=== PATIENT | male | born 1960 | race Caucasian/White ===

== ENCOUNTER 2017-08-25 12:25 | Emergency (ER) | payer OTHER ==
[~2017-08-25] VITALS: Ht 165.1 cm; Wt 113.4 kg
[~2017-08-25 12:25] MED LIST: ASPI81CH45 PO; HYDR-1421; METO-169 PO; SIMV-13 PO
[2017-08-25 13:05] LABS: Basophils # (auto) 0 uL; Basophils % (auto) 0.7 % (0.0-2.0); Eosinophils # (auto) 0.1 uL; Eosinophils % (auto) 1.2 % (0.0-7.0); Hematocrit 41.1 % (41.0-53.0); Hemoglobin 13.9 g/dL (13.5-17.5); Lymphocytes % (auto) 31.6 % (10.0-50.0); Mean Corpuscular Hemoglobin 29.4 pg (28.0-32.0); Mean Corpuscular Hgb Conc. 33.8 g/dL (32.0-36.0); Mean Corpuscular Volume 87.1 fL (80.0-100.0); Mean Platelet Volume 8.1 fL (6.9-10.8); Monocytes # (auto) 0.5 uL; Monocytes % (auto) 8.4 % (0.0-12.0); Neutrophils # (auto) 3.7 uL; Neutrophils % (auto) 58.1 % (37.0-80.0); Nucleated Red Blood Cells % 0.1 %; Platelet Count (auto) 237 10^3/uL (140-450); Red Cell Distribution Width 13.2 % (11.8-14.3); White Blood Cell 6.4 10^3/uL (4.4-10.8)
[2017-08-25 13:33] LABS: Anion Gap 8 (5-15); Blood Urea Nitrogen 16 mg/dL (7-18); Calcium 9.1 mg/dL (8.5-10.1); Carbon Dioxide 26 mmol/L (21-32); Chloride 104 mmol/L (98-107); Glucose 101 mg/dL (74-106); Magnesium 2.1 mg/dL (1.6-2.6); Potassium 3.8 mmol/L (3.5-5.1); Sodium 138 mmol/L (136-145)
[2017-08-25 13:36] LABS: Albumin 3.5 g/dL (3.4-5.0); BUN/Creatinine Ratio 16.8; GFR African American 106 mL/min; GFR Non-African American 87 mL/min
[2017-08-25 13:43] LABS: Alkaline Phosphatase 95 U/L (45-117); Aspartate Aminotransferase 16 U/L (15-37); Bilirubin, Total 0.3 mg/dL (0.2-1.0); Total Protein 7.8 g/dL (6.4-8.2)
[2017-08-25 15:06] VITALS: BP 134/86
== END 2017-08-25 15:17 | disposition home or self-care (01) ==
LOC: ER 12:25
DX: R07.89 Other chest pain (principal); I10 Essential (primary) hypertension; I25.10 Atherosclerotic heart disease of native coronary artery without angina pectoris; E78.5 Hyperlipidemia, unspecified; I25.2 Old myocardial infarction; Z77.22 Contact with and (suspected) exposure to environmental tobacco smoke (acute) (chronic); Z87.11 Personal history of peptic ulcer disease; Z79.82 Long term (current) use of aspirin
CPT/HCPCS: 36415; 71020; 80053; 83735; 84484; 85025; 93005

== ENCOUNTER 2021-03-06 07:29 | Day surgery (SDC) | payer MEDICAID ==
[~2021-03-06] VITALS: Ht 165.1 cm; Wt 148.8 kg
[~2021-03-06 07:29] MED LIST changes: -ASPI81CH45 PO; -HYDR-1421; +IBUP800T27 PO; -METO-169 PO; -SIMV-13 PO
[2021-03-06] MEDS ORDERED: LIDOCAINE 2%HCL (LOCAL ANESTH.) INJ 20ML MDV ONE (08:59)
[2021-03-06] MEDS ORDERED: IOHEXOL 350 MG/ML 100ML IJ ONE (08:59)
[2021-03-06] MEDS ORDERED: ANGIOMAX 250 MG VIAL IV ONE (09:06)
[2021-03-06] MEDS ORDERED: VERAPAMIL 2.5MG/ML INJ 2ML VIAL IV ONE (09:06)
[2021-03-06] MEDS ORDERED: HEPARIN SODIUM (PORCINE) 5000 UNITS/ML 1ML VIAL ONE (09:06)
[2021-03-06] MEDS ORDERED: MIDAZOLAM HCL 1MG/1ML-2 ML VIAL ONE (09:07)
[2021-03-06] MEDS ORDERED: fentaNYL CITRATE 100 MCG/2 ML VL ONE (09:07)
[2021-03-06] MEDS ORDERED: SODIUM CHL 0.9% 50 ML ONE (09:07)
[2021-03-06] MEDS ORDERED: NITROGLYCERIN 5MG/ML 10ML VIAL IV ONE (09:31)
[2021-03-06] MEDS ORDERED: hydrALAZINE HCL 20 MG/ML VL ONE (10:01)
[2021-03-06] MEDS ORDERED: ACETAMINOPHEN 500 MG TAB PO PRN (10:45)
[2021-03-06] MEDS ORDERED: HYDROcodone-ACET 5/325MG TAB PO PRN (10:45)
[2021-03-06] MEDS ORDERED: SODIUM CHLORIDE 0.9% 1,000 ML IV SCH (10:45)
== END 2021-03-06 12:35 | disposition home or self-care (01) ==
LOC: CATH 07:29
PROVIDERS: ADMIT Internal Medicine; ATTEND Internal Medicine Cardiovascular Disease
DX: R06.02 Shortness of breath (principal); I25.10 Atherosclerotic heart disease of native coronary artery without angina pectoris; G47.30 Sleep apnea, unspecified; E66.01 Morbid (severe) obesity due to excess calories; I10 Essential (primary) hypertension; E78.5 Hyperlipidemia, unspecified; Z20.822 Contact with and (suspected) exposure to COVID-19; Z98.890 Other specified postprocedural states; Z79.899 Other long term (current) drug therapy; Z95.5 Presence of coronary angioplasty implant and graft; Z68.43 Body mass index [BMI] 50.0-59.9, adult
CPT/HCPCS: 93460; C1751; C1760; C1769; C1894; J0360; J1644; J2250; J3010; J3490; J7030; Q9967; U0003; 99152; 99153

== ENCOUNTER 2021-05-05 12:22 | Inpatient (IN) | payer MEDICAID, OTHER ==
[~2021-05-05] VITALS: Ht 165.1 cm; Wt 145.0 kg
[2021-05-05 13:36] LABS: Basophils # (auto) 0 10 ^3/uL (0-0.2); Basophils % (auto) 0.4 % (0.0-2.0); Eosinophils # (auto) 0.1 10 ^3/uL (0-0.8); Eosinophils % (auto) 0.8 % (0.0-7.0); Hematocrit 44.1 % (41.0-53.0); Hemoglobin 14.9 g/dL (13.5-17.5); Lymphocytes # (auto) 1.4 10 ^3/uL (0.4-5.4); Lymphocytes % (auto) 12.9 % (10.0-50.0); Mean Corpuscular Hemoglobin 29.4 pg (28.0-32.0); Mean Corpuscular Hgb Conc. 33.8 g/dL (32.0-36.0); Mean Corpuscular Volume 87.2 fL (80.0-100.0); Monocytes # (auto) 0.7 10 ^3/uL (0-1.3); Monocytes % (auto) 6.8 % (0.0-12.0); Neutrophils # (auto) 8.4 10 ^3/uL (1.6-8.6); Neutrophils % (auto) 79.1 % (37.0-80.0); Nucleated Red Blood Cells % 0.1 %; Red Blood Cells 5.06 10^6/uL (4.5-5.90); Red Cell Distribution Width 13.8 % (11.8-14.3); White Blood Cell 10.6 10^3/uL (4.4-10.8)
[2021-05-05 13:50] LABS: Urine Bacteria NONE SEEN /hpf (None Seen); Urine Blood Negative /uL (Negative); Urine Specific Gravity 1.021 (1.001-1.035); Urine WBC <1 /hpf (0 - 3)
[2021-05-05 13:57] LABS: Albumin 3.6 g/dL (3.4-5.0); Calcium 8.9 mg/dL (8.5-10.1)
[2021-05-05 14:01] LABS: BUN/Creatinine Ratio 14.1; Bilirubin, Total 0.5 mg/dL (0.2-1.0)
[2021-05-05] MEDS ORDERED: SODIUM CHLORIDE 0.9% 1,000 ML IV ONE (14:45)
[2021-05-05] MEDS ORDERED: ONDANSETRON HCL 4 MG/2 ML VIAL IV ONE (14:45)
[2021-05-05] MEDS ORDERED: MORPHINE SULFATE 4 MG/ML SYR/VIAL IV ONE (14:45)
[2021-05-05] MEDS ORDERED: PIPERACILLIN-TAZOB 3.375GM 100 ML IV ONE (14:45)
[2021-05-05] MEDS ORDERED: cefTRIAXone 1GM/50ML D5W 50 ML IV ONE (15:00)
[2021-05-05] MEDS ORDERED: metroNIDAZOLE 500MG/100ML 100 ML IV ONE (15:00)
[2021-05-05] MEDS ORDERED: MORPHINE SULF INJ 2 MG/ML SYRINGE 1ML IV PRN (15:15)
[2021-05-05] MEDS ORDERED: ONDANSETRON HCL 4 MG/2 ML VIAL IV PRN (15:15)
[2021-05-05] MEDS ORDERED: NITROGLYCERIN 0.4 MG SL TAB SL PRN (15:15)
[2021-05-05] MEDS ORDERED: D5W/SOD CHL 0.45%/KCL 20MEQ 1,000 ML IV ONE (15:15)
[2021-05-05 15:30] LABS: INR 0.97 (0.9-1.15); Partial Thromboplastin Time 27.1 sec (23.6-33.0)
[2021-05-05] MEDS ORDERED: HYDR-4072 PO (18:06)
[2021-05-05] MEDS: HYDROmorphone HCL 2 MG/ML VL IV PRN (18:54)
[2021-05-05] MEDS: metroNIDAZOLE 500MG/100ML 100 ML IV SCH (20:44)
[2021-05-05 22:00] VITALS: BP 109/61
[2021-05-05 22:18] VITALS: BP 129/71
[2021-05-06 05:00] VITALS: BP 103/49
[2021-05-06] MEDS: metroNIDAZOLE 500MG/100ML 100 ML IV SCH ×4 (06:00→20:27)
[2021-05-06] MEDS ORDERED: BUPIVACAINE 0.25% INJ 50ML VIAL ONE (07:10)
[2021-05-06] MEDS ORDERED: LIDOCAINE W/ EPINEPHRINE 1% 20ML VIAL ONE (07:10)
[2021-05-06] MEDS ORDERED: NEOSTIGMINE 1 MG/ML INJ (10mg/10ML VIAL) IV ONE (07:28)
[2021-05-06] MEDS ORDERED: SUCCINYLCHOLINE CHLORIDE 20 MG/ML 10ML VIAL IV ONE (07:32)
[2021-05-06] MEDS ORDERED: ROCURONIUM 10MG/ML 10ML VIAL IV ONE (07:36)
[2021-05-06] MEDS ORDERED: fentaNYL CITRATE 5 ML ONE (07:36)
[2021-05-06] MEDS ORDERED: MIDAZOLAM HCL 2MG/2ML 2ml VIAL (1mg/ml) ONE (07:36)
[2021-05-06] MEDS ORDERED: LIDOCAINE 2% (LOCAL ANESTH.) PF 5ml SDV ONE (07:43)
[2021-05-06] MEDS ORDERED: ONDANSETRON HCL 4 MG/2 ML VIAL ONE (07:43)
[2021-05-06] MEDS ORDERED: PROPOFOL 10 MG/ML 20 ML IV ONE (07:43)
[2021-05-06] MEDS: cefTRIAXone 1GM/50ML D5W 50 ML IV SCH (09:00)
[2021-05-06] MEDS ORDERED: ONDANSETRON HCL 4 MG/2 ML VIAL IV PRN (09:15)
[2021-05-06] MEDS ORDERED: D5W/SOD CHL 0.45%/KCL 20MEQ 1,000 ML IV SCH (09:15)
[2021-05-06] MEDS ORDERED: HYDROmorphone HCL 2 MG/ML VL IV PRN ×2 (09:15)
[2021-05-06] MEDS ORDERED: GLYCOPYRROLATE 0.2 MG/ML 1ML VIAL ONE (09:23)
[2021-05-06] MEDS: PANTOPRAZOLE 40 MG/10 ML VIAL INJ IV SCH (10:00)
[2021-05-06] MEDS: SODIUM CHLORIDE 0.9% 1,000 ML IV SCH ×2 (10:39→23:20)
[2021-05-06 10:48] VITALS: BP 145/77
[2021-05-06 13:00] VITALS: BP 129/76
[2021-05-06] MEDS: HYDROmorphone HCL 2 MG/ML VL IV PRN ×2 (13:09→23:55)
[2021-05-06 17:00] VITALS: BP 108/57
[2021-05-06 22:00] VITALS: BP 127/59
[2021-05-07] MEDS: HYDROmorphone HCL 2 MG/ML VL IV PRN ×5 (04:07→21:56)
[2021-05-07 05:00] VITALS: BP 129/71
[2021-05-07 06:17] LABS: Basophils # (auto) 0 10 ^3/uL (0-0.2); Basophils % (auto) 0.2 % (0.0-2.0); Eosinophils # (auto) 0 10 ^3/uL (0-0.8); Hematocrit 38.8 % (41.0-53.0); Hemoglobin 13.3 g/dL (13.5-17.5); Lymphocytes % (auto) 11.6 % (10.0-50.0); Mean Corpuscular Hemoglobin 30.3 pg (28.0-32.0); Mean Corpuscular Hgb Conc. 34.3 g/dL (32.0-36.0); Mean Corpuscular Volume 88.2 fL (80.0-100.0); Monocytes # (auto) 0.7 10 ^3/uL (0-1.3); Monocytes % (auto) 7.2 % (0.0-12.0); Neutrophils # (auto) 7.3 10 ^3/uL (1.6-8.6); Red Cell Distribution Width 13.9 % (11.8-14.3); White Blood Cell 9.1 10^3/uL (4.4-10.8)
[2021-05-07 06:28] LABS: BUN/Creatinine Ratio 9.3; Calcium 8.2 mg/dL (8.5-10.1)
[2021-05-07] MEDS: metroNIDAZOLE 500MG/100ML 100 ML IV SCH ×3 (07:08→21:55)
[2021-05-07] MEDS: PANTOPRAZOLE 40 MG/10 ML VIAL INJ IV SCH (08:41)
[2021-05-07] MEDS: cefTRIAXone 1GM/50ML D5W 50 ML IV SCH (08:41)
[2021-05-07] MEDS: ENOXAPARIN SOD 40 MG/0.4 ML SYRINGE SC SCH (08:42)
[2021-05-07 09:00] VITALS: BP 132/59
[2021-05-07] MEDS ORDERED: FUROSEMIDE 20 MG/2 ML VIAL IV ONE (11:45)
[2021-05-07 17:00] VITALS: BP 128/79
[2021-05-07 22:00] VITALS: BP 128/68
[2021-05-08] MEDS: HYDROmorphone HCL 2 MG/ML VL IV PRN ×4 (02:00→20:02)
[2021-05-08 05:00] VITALS: BP 123/75
[2021-05-08] MEDS: metroNIDAZOLE 500MG/100ML 100 ML IV SCH (06:04)
[2021-05-08 09:00] VITALS: BP 158/79
[2021-05-08] MEDS: HYDROcodone-ACET 5/325MG TAB PO PRN ×3 (09:17→21:00)
[2021-05-08] MEDS: ENOXAPARIN SOD 40 MG/0.4 ML SYRINGE SC SCH (09:18)
[2021-05-08] MEDS: cefTRIAXone 1GM/50ML D5W 50 ML IV SCH (09:18)
[2021-05-08] MEDS: PANTOPRAZOLE 40 MG/10 ML VIAL INJ IV SCH (09:20)
[2021-05-08] MEDS ORDERED: POTASSIUM CHL 20 Meq TABLET PO ONE (10:45)
[2021-05-08] MEDS ORDERED: FUROSEMIDE 40 MG/4 ML VIAL IV ONE (10:45)
[2021-05-08] MEDS ORDERED: DOCUSATE SOD 100 MG CAP PO ONE (10:45)
[2021-05-08 13:00] VITALS: BP 147/74
[2021-05-08 16:19] VITALS: BP 141/93
[2021-05-08] MEDS: DOCUSATE SOD 100 MG CAP PO SCH (21:00)
[2021-05-08 22:00] VITALS: BP 136/79
[2021-05-09] MEDS: HYDROmorphone HCL 2 MG/ML VL IV PRN ×3 (01:21→10:33)
[2021-05-09] MEDS: HYDROcodone-ACET 5/325MG TAB PO PRN (03:48)
[2021-05-09 04:54] VITALS: BP 122/91
[2021-05-09 05:56] LABS: Basophils # (auto) 0 10 ^3/uL (0-0.2); Basophils % (auto) 0.4 % (0.0-2.0); Eosinophils # (auto) 0.1 10 ^3/uL (0-0.8); Eosinophils % (auto) 1.4 % (0.0-7.0); Hematocrit 39.6 % (41.0-53.0); Hemoglobin 13.5 g/dL (13.5-17.5); Lymphocytes # (auto) 1.3 10 ^3/uL (0.4-5.4); Mean Corpuscular Hemoglobin 29.7 pg (28.0-32.0); Mean Corpuscular Hgb Conc. 34.2 g/dL (32.0-36.0); Mean Corpuscular Volume 86.9 fL (80.0-100.0); Monocytes # (auto) 0.8 10 ^3/uL (0-1.3); Neutrophils # (auto) 4.7 10 ^3/uL (1.6-8.6); Neutrophils % (auto) 68.2 % (37.0-80.0); Nucleated Red Blood Cells % 0.1 %; Red Blood Cells 4.55 10^6/uL (4.5-5.90); Red Cell Distribution Width 13.4 % (11.8-14.3); White Blood Cell 6.9 10^3/uL (4.4-10.8)
[2021-05-09 06:09] LABS: Calcium 8.8 mg/dL (8.5-10.1); Potassium 3.8 mmol/L (3.5-5.1)
[2021-05-09 06:13] LABS: BUN/Creatinine Ratio 16.7
[2021-05-09 09:00] VITALS: BP 112/69
[2021-05-09] MEDS: DOCUSATE SOD 100 MG CAP PO SCH (09:11)
[2021-05-09] MEDS: cefTRIAXone 1GM/50ML D5W 50 ML IV SCH (09:11)
[2021-05-09] MEDS: ENOXAPARIN SOD 40 MG/0.4 ML SYRINGE SC SCH (09:12)
[2021-05-09] MEDS ORDERED: PANTOPRAZOLE 40 MG TAB PO SCH (10:00)
[2021-05-09 13:00] VITALS: BP 138/67
[2021-05-09 13:34] VITALS: BP 117/71
== END 2021-05-09 14:42 | disposition home or self-care (01) | DRG 234 ==
LOC: ER 12:22 → TELE 15:02 → TELE-CENTR 17:42
PROVIDERS: ADMIT Nurse Practitioner Acute Care; ATTEND Internal Medicine
PROC: 5A09457 Assistance with Respiratory Ventilation, 24-96 Consecutive Hours, Continuous Positive Airway Pressure (ICD-10-PCS; 2021-05-05)
PROC: 0DTJ4ZZ Resection of Appendix, Percutaneous Endoscopic Approach (ICD-10-PCS; principal; 2021-05-06 07:38)
DX: K35.30 Acute appendicitis with localized peritonitis, without perforation or gangrene (principal); J96.00 Acute respiratory failure, unspecified whether with hypoxia or hypercapnia; I50.41 Acute combined systolic (congestive) and diastolic (congestive) heart failure; E66.01 Morbid (severe) obesity due to excess calories; Z20.822 Contact with and (suspected) exposure to COVID-19; E78.5 Hyperlipidemia, unspecified; I11.0 Hypertensive heart disease with heart failure; G47.33 Obstructive sleep apnea (adult) (pediatric); Z68.43 Body mass index [BMI] 50.0-59.9, adult; Z80.1 Family history of malignant neoplasm of trachea, bronchus and lung
CPT/HCPCS: 36415; 71045; 71046; 74176; 80048; 80053; 81001; 83690; 85025; 85610; 85730; 86850; 86900; 86901; 87426; 93005; 93306; 94660; 96365; 96367; 96368; 96375; 97163; C9113; G0378; J0330; J0696; J2001; J2250; J2405; J2704; J3490

== ENCOUNTER 2022-10-12 09:16 | Emergency (ER) | payer MEDICAID ==
[~2022-10-12] VITALS: Ht 165.1 cm; Wt 95.7 kg
[~2022-10-12 09:16] MED LIST changes: +HYDR-4072 PO
[2022-10-12 09:35] VITALS: BP 123/73
[2022-10-12 10:08] LABS: Basophils # (auto) 0 10 ^3/uL (0-0.2); Basophils % (auto) 0.3 % (0.0-2.0); Eosinophils # (auto) 0 10 ^3/uL (0-0.8); Eosinophils % (auto) 0.7 % (0.0-7.0); Hematocrit 39.7 % (41.0-53.0); Lymphocytes # (auto) 1.8 10 ^3/uL (0.4-5.4); Lymphocytes % (auto) 41.4 % (10.0-50.0); Mean Corpuscular Hgb Conc. 32.9 g/dL (32.0-36.0); Monocytes # (auto) 0.3 10 ^3/uL (0-1.3); Monocytes % (auto) 7.9 % (0.0-12.0); Neutrophils # (auto) 2.2 10 ^3/uL (1.6-8.6); Neutrophils % (auto) 49.7 % (37.0-80.0); Red Blood Cells 4.36 10^6/uL (4.5-5.90); Red Cell Distribution Width 13.7 % (11.8-14.3); White Blood Cell 4.4 10^3/uL (4.4-10.8)
[2022-10-12 10:45] LABS: Calcium 8.2 mg/dL (8.5-10.1); Potassium 4.3 mmol/L (3.5-5.1)
[2022-10-12 10:48] LABS: Albumin 3.3 g/dL (3.4-5.0); BUN/Creatinine Ratio 16.5
[2022-10-12 10:51] LABS: Bilirubin, Total 0.3 mg/dL (0.2-1.0)
== END 2022-10-12 13:56 | disposition home or self-care (01) ==
LOC: ER 09:16
DX: S86.912A Strain of unspecified muscle(s) and tendon(s) at lower leg level, left leg, initial encounter (principal); I10 Essential (primary) hypertension; I25.2 Old myocardial infarction; Z79.1 Long term (current) use of non-steroidal anti-inflammatories (NSAID); Z79.899 Other long term (current) drug therapy; X58.XXXA Exposure to other specified factors, initial encounter; Y93.89 Activity, other specified; Y92.89 Other specified places as the place of occurrence of the external cause; Y99.8 Other external cause status
CPT/HCPCS: 36415; 80053; 84484; 85025; 93005; 93971

== ENCOUNTER 2024-06-30 10:20 | Emergency (ER) | payer MEDICAID, OTHER ==
[~2024-06-30] VITALS: Ht 165.1 cm; Wt 70.4 kg
[~2024-06-30 10:20] MED LIST changes: +IBUP-1456 PO; -IBUP800T27 PO
[2024-06-30 10:32] VITALS: PULSE 70; RESP 18; O2SAT 94
[2024-06-30] MEDS: ONDANSETRON HCL 4 MG/2 ML VIAL IV ONE (10:50)
[2024-06-30] MEDS: MORPHINE SULFATE INJ 2 MG/ml SYRG IV ONE (10:50)
[2024-06-30] MEDS: TETANUS-DIPTH-ACEL PERTUSSIS 0.5ML SYR Tdap IM ONE (12:01)
[2024-06-30] MEDS: cefTRIAXone 1GM/50ML D5W 50 ML IV ONE (12:05)
[2024-06-30] MEDS: fentaNYL CITRATE 100 MCG/2 ML VL IV ONE ×2 (12:23→14:06)
[2024-06-30 14:00] VITALS: TEMP 98.1
[2024-06-30 14:34] VITALS: BP 114/71; PULSE 70; RESP 18; O2SAT 96
== END 2024-06-30 14:36 | disposition short-term general hospital (02) ==
LOC: EDBD 10:20 → ER 10:20
DX: S82.251B Displaced comminuted fracture of shaft of right tibia, initial encounter for open fracture type I or II (principal); S82.831A Other fracture of upper and lower end of right fibula, initial encounter for closed fracture; V23.49XA Other motorcycle driver injured in collision with car, pick-up truck or van in traffic accident, initial encounter; Y93.89 Activity, other specified; Y92.488 Other paved roadways as the place of occurrence of the external cause; Y99.8 Other external cause status; I10 Essential (primary) hypertension; Z23 Encounter for immunization
CPT/HCPCS: 29515; 73590; 90471; 90715; 96365; 96375; 96376; 99285; J0696; J2270; J2405; J3010; 99291